=== PATIENT | female | born 1970 | race Caucasian/White ===

== ENCOUNTER 2022-09-04 08:37 | Inpatient (IN) | payer OTHER ==
[~2022-09-04] VITALS: Ht 160 cm; Wt 104.8 kg
[2022-09-04] MEDS ORDERED: ONDANSETRON HCL 4MG/2ML INJ IV STA (09:07)
[2022-09-04] MEDS ORDERED: SODIUM CHLORIDE 0.9% 1,000 ML IV ONE ×2 (09:15→12:00)
[2022-09-04] MEDS ORDERED: MECLIZINE 25MG TABLET PO ONE ×2 (09:15→12:00)
[2022-09-04 10:08] LABS: BASOPHILS % 0.5 % (0.0-2.0); EOSINOPHILS % 1.5 % (0.0-5.0); HEMATOCRIT. 35.2 % (36.0-48.0); HEMOGLOBIN. 12.2 g/dL (12.0-16.0); LYMPHOCYTES % 29.2 % (20.0-50.0); MEAN CORPUSCULAR HEMOGLOBIN 28.4 pg (28.0-32.0); MEAN CORPUSCULAR VOLUME 82.2 fL (81.0-99.0); MONOCYTES % 4.9 % (2.0-8.0); NEUTROPHILS % 63.9 % (40.0-76.0); PLATELET 264 x1000/uL (130-400); RED BLOOD CELL COUNT 4.29 mill/uL (4.2-5.4); RED CELL DISTRIBUTION WIDTH 14.2 % (11.6-14.6)
[2022-09-04 10:25] LABS: CHLORIDE 104 mEq/L (98-107)
[2022-09-04 11:36] LABS: CLARITY URINE CLEAR (CLEAR); COLOR URINE YELLOW (YELLOW); KETONES URINE NEGATIVE (NEGATIVE); LEUKOCYTE ESTERASE URINE NEGATIVE (NEGATIVE); NITRITE URINE NEGATIVE (NEGATIVE); OCCULT BLOOD URINE NEGATIVE (NEGATIVE); PH URINE 6.5 (4.5-8.0); PROTEIN URINE NEGATIVE (NEGATIVE); UROBILINOGEN URINE 0.2 E.U./dL (0.2-1.0)
[2022-09-04] MEDS ORDERED: ASPIRIN 325MG TABLET PO ONE (16:45)
[2022-09-04 18:59] VITALS: BP 141/68
[2022-09-04 20:00] VITALS: BP 144/70
[2022-09-04] MEDS ORDERED: ACETAMINOPHEN 325MG TABLET PO PRN (20:30)
[2022-09-04] MEDS: MECLIZINE 25MG TABLET PO PRN (20:49)
[2022-09-05] VITALS: BP 117/53
[2022-09-05 04:00] VITALS: BP 142/49
[2022-09-05 08:00] VITALS: BP 139/61
[2022-09-05 08:41] LABS: BASOPHILS % 0.5 % (0.0-2.0); HEMATOCRIT. 34.4 % (36.0-48.0); HEMOGLOBIN. 11.8 g/dL (12.0-16.0); LYMPHOCYTES % 38.1 % (20.0-50.0); MEAN CORPUSCULAR HEMOGLOBIN 28.5 pg (28.0-32.0); MEAN CORPUSCULAR VOLUME 83.1 fL (81.0-99.0); MEAN PLATELET VOLUME 7.6 fl (7.4-10.4); MONOCYTES % 4.4 % (2.0-8.0); PLATELET 234 x1000/uL (130-400); RED BLOOD CELL COUNT 4.14 mill/uL (4.2-5.4); RED CELL DISTRIBUTION WIDTH 13.9 % (11.6-14.6)
[2022-09-05 09:01] LABS: CHLORIDE 106 mEq/L (98-107)
[2022-09-05] MEDS: HEPARIN 5000 UNITS/ML VIAL SUBCUT SCH ×2 (09:49→21:22)
[2022-09-05] MEDS: MECLIZINE 25MG TABLET PO PRN ×2 (09:50→17:20)
[2022-09-05 12:00] VITALS: BP 113/61
[2022-09-05 16:00] VITALS: BP_SYST 120; BP_SYST 130; BP_SYST 138; BP_DIAS 69; BP_DIAS 79; BP_DIAS 81
[2022-09-05 20:00] VITALS: BP 125/64
[2022-09-06] VITALS: BP_SYST 112; BP_SYST 132; BP_SYST 138; BP_DIAS 53; BP_DIAS 57; BP_DIAS 75
[2022-09-06 04:00] VITALS: BP 109/62
[2022-09-06] MEDS: MECLIZINE 25MG TABLET PO PRN ×2 (06:23→15:53)
[2022-09-06 08:00] VITALS: BP 127/72
[2022-09-06 08:04] LABS: BASOPHILS % 0.4 % (0.0-2.0); EOSINOPHILS % 1.9 % (0.0-5.0); HEMATOCRIT. 35.4 % (36.0-48.0); HEMOGLOBIN. 12.1 g/dL (12.0-16.0); LYMPHOCYTES % 31.6 % (20.0-50.0); MEAN CORPUSCULAR HEMOGLOBIN 28.4 pg (28.0-32.0); MEAN CORPUSCULAR VOLUME 82.7 fL (81.0-99.0); MONOCYTES % 4.9 % (2.0-8.0); NEUTROPHILS % 61.2 % (40.0-76.0); PLATELET 240 x1000/uL (130-400); RED BLOOD CELL COUNT 4.28 mill/uL (4.2-5.4); RED CELL DISTRIBUTION WIDTH 14.1 % (11.6-14.6)
[2022-09-06] MEDS: HEPARIN 5000 UNITS/ML VIAL SUBCUT SCH ×2 (08:48→22:05)
[2022-09-06 09:22] LABS: CHLORIDE 106 mEq/L (98-107)
[2022-09-06 12:00] VITALS: BP 144/77
[2022-09-06 16:00] VITALS: BP 109/55
[2022-09-06 20:00] VITALS: BP 125/63
[2022-09-07] VITALS: BP_SYST 106; BP_SYST 110; BP_SYST 118; BP_DIAS 57; BP_DIAS 65; BP_DIAS 71
[2022-09-07 00:32] VITALS: BP 121/57
[2022-09-07 04:00] VITALS: BP 116/59
[2022-09-07 08:00] VITALS: BP 117/59
[2022-09-07] MEDS: HEPARIN 5000 UNITS/ML VIAL SUBCUT SCH (08:53)
[2022-09-07 12:00] VITALS: BP 117/74
[2022-09-07 12:15] VITALS: BP 117/74
[2022-09-07] MEDS ORDERED: MECL-159 MT (12:46)
== END 2022-09-07 15:05 | disposition home or self-care (01) | DRG 74 ==
LOC: ER 09:01 → 7WST 14:53 → EDBEDREQ 14:57 → ENRESERV 16:52
PROVIDERS: ADMIT Internal Medicine; ATTEND Internal Medicine
DX: G90.8 Other disorders of autonomic nervous system (principal); R51.9 Headache, unspecified; Z90.49 Acquired absence of other specified parts of digestive tract; Z91.81 History of falling
CPT/HCPCS: 36415; 70551; 80048; 80053; 81003; 85025; 93005; 97112; 97162; 97164; 99285; J1644; J2405; J7030; J8597

== ENCOUNTER 2025-03-10 10:40 | Emergency (ER) | payer MEDICAID, OTHER ==
[~2025-03-10] VITALS: Ht 167.6 cm; Wt 91.0 kg
[~2025-03-10 10:40] MED LIST: MECL-299 MT
[2025-03-10 10:42] VITALS: O2SAT 99
[2025-03-10 10:43] VITALS: BP 118/70; PULSE 100; RESP 18; TEMP 36.8; O2SAT 99
[2025-03-10 12:46] LABS: INFLUENZA TYPE A Presumptive Negative (Pres. Neg.); INFLUENZA TYPE B Presumptive Negative (Pres. Neg.)
[2025-03-10 13:19] LABS: CLARITY URINE CLEAR (CLEAR); COLOR URINE YELLOW (YELLOW); GLUCOSE URINE NEGATIVE (NEGATIVE); KETONES URINE NEGATIVE (NEGATIVE); LEUKOCYTE ESTERASE URINE NEGATIVE (NEGATIVE); NITRITE URINE NEGATIVE (NEGATIVE); OCCULT BLOOD URINE NEGATIVE (NEGATIVE); PROTEIN URINE NEGATIVE (NEGATIVE); UROBILINOGEN URINE 0.2 E.U./dL (0.2-1.0)
[2025-03-10] MEDS: KETOROLAC 30MG/ML VIAL IM STA (13:51)
[2025-03-10 16:12] LABS: BASOPHILS % 0.7 % (0.0-2.0); DIFFERENTIAL COMMENT 0; EOSINOPHILS % 0.1 % (0.0-5.0); LYMPHOCYTES % 23.3 % (20.0-50.0); MEAN CORPUSCULAR HGB CONC 34.2 g/dL (31.0-37.0); MEAN CORPUSCULAR VOLUME 78.9 fL (81.0-99.0); MEAN PLATELET VOLUME 7.4 fl (7.4-10.4); MONOCYTES % 4.1 % (2.0-8.0); NEUTROPHILS % 71.8 % (40.0-76.0); PLATELET 339 x1000/uL (130-400); RED BLOOD CELL COUNT 4.44 mill/uL (4.2-5.4); WHITE BLOOD COUNT 8.6 x1000/uL (4.5-11.0)
[2025-03-10 16:19] LABS: CHLORIDE 100 mEq/L (98-107); POTASSIUM 4.2 mEq/L (3.5-5.1); SODIUM 135 mEq/L (136-145)
[2025-03-10 16:20] LABS: CALCIUM 9.6 mg/dL (8.7-10.4); CARBON DIOXIDE 26 mEq/L (21-32)
[2025-03-10 16:25] LABS: CREATININE 0.5 mg/dL (0.6-1.0); GLUCOSE 97 mg/dL (70-105); UREA NITROGEN BLOOD 17 mg/dL (9-23)
[2025-03-10] MEDS ORDERED: NAPR-681 MT (16:44)
[2025-03-10] MEDS ORDERED: D-ME473S50 PO (16:44)
== END 2025-03-10 17:22 | disposition home or self-care (01) ==
LOC: ER 10:40
DX: J06.9 Acute upper respiratory infection, unspecified (principal); M79.18 Myalgia, other site; I10 Essential (primary) hypertension; F10.90 Alcohol use, unspecified, uncomplicated; Z90.49 Acquired absence of other specified parts of digestive tract; Z20.822 Contact with and (suspected) exposure to COVID-19; Y90.9 Presence of alcohol in blood, level not specified
CPT/HCPCS: 99284; 71045; 87426; 80048; 81003; 85025; 87804 ×2; 36415; 96372; J1885